=== PATIENT | female | born 1945 | race Asian ===

== ENCOUNTER 2018-06-04 14:58 | Inpatient (IN) | payer MEDICARE, OTHER ==
[~2018-06-04] VITALS: Ht 152.4 cm; Wt 28.6 kg
[2018-06-04] MEDS ORDERED: METFORMIN HCL1000 M1 ORAL (15:05)
[2018-06-04] MEDS ORDERED: ASPIRIN EC81 MG ORAL (15:05)
[2018-06-04] MEDS ORDERED: TAMSULOSIN HCL0.4 MG ORAL (15:05)
[2018-06-04] MEDS ORDERED: CARVEDILOL25 MG ORAL (15:08)
[2018-06-04] MEDS ORDERED: NORCO 5-325 TA1 EACH ORAL (15:08)
[2018-06-04] MEDS ORDERED: TYLENOL325 M1 PO (15:08)
[2018-06-04] MEDS ORDERED: SYNTHROID25 MCG ORAL (15:08)
[2018-06-04] MEDS ORDERED: CARBIDOPA-LEVO1 EA14 PO (15:08)
[2018-06-04] MEDS ORDERED: DOCUSATE SODIU250 MG ORAL (15:08)
[2018-06-04] MEDS ORDERED: PRO-STAT LIQUID30 ML ORAL (15:08)
[2018-06-04] MEDS ORDERED: ATORVASTATIN CA40 MG ORAL (15:08)
[2018-06-04 15:24] VITALS: BP 170/77
[2018-06-04] MEDS ORDERED: Sodium Chloride 500ML 500 ML IV ONE (15:25)
--- NOTE | 2018-06-04 15:28 | Emergency Room Report ---
History of Present Illness General Chief Complaint: Pain Source: Medical Record, EMS Present Illness HPI Patient present from nursing facility with reports of right sided pain above the knee There was no reports of any obvious witnessed trauma patient herself has underlying dementia and is not able to provide appropriate history she essentially repeat that she has pain to the right hip and leg area There was no reports of vomiting or diarrhea History of present illness remains significantly limited Allergies: Coded Allergies: QUETIAPINE (Verified Allergy, Unknown, 06/04/18) Patient History Past Medical History: see triage record Pertinent Family History: none Reviewed Nursing Documentation: PMH: Agreed; PSxH: Agreed Nursing Documentation-PMH Past Medical History: No History, Except For Hx Cardiac Problems: No - Parkinson's dz, hypothyroidism Hx Hypertension: Yes Hx Diabetes: Yes Hx Neurological Problems: No - muscle weakness Hx Cerebrovascular Accident: Yes Review of Systems All Other Systems: limited - Other than the ones mentioned in the history of present illness all others are reviewed however they do stay limited due to the patient's mental status Physical Exam Vital Signs Date Time Temp Pulse Resp B/P (MAP) Pulse Ox O2 Delivery O2 Flow Rate FiO2 06/04/18 14:55 98.2 70 16 175/85 98 Room Air Sp02 EP Interpretation: reviewed, normal General Appearance: no apparent distress Head: normocephalic, atraumatic Eyes: bilateral eye PERRL, bilateral eye EOMI ENT: hearing grossly normal, normal pharynx Neck: supple Respiratory: lungs clear, normal breath sounds Cardiovascular #1: regular rate, rhythm Gastrointestinal: non tender, soft Genitourinary: no CVA tenderness Musculoskeletal: other - Right leg appears to be about one to 2 cm short compared to the left side, there is an external rotation on the right side as well evidence of previous knee surgery, Neurologic: responsive - To verbal questioning minimally patient appears somewhat confused, has difficulty communicating Skin: normal color, no rash Medical Decision Making Diagnostic Impression: Primary Impression: Hip pain Additional Impression: Leg pain ER Course Multiple differentials were considered Given the patient's initial presentation x-ray imaging was obtained there does appear to be some chronic pathology in the right hip this was discussed with radiology CT imaging was also obtained I did contact the nursing facility they report that the patient last had hospital visit in September in [facility] regarding her right knee pain and at that time likely infection Patient is not ambulatory on a regular basis however they report that she has ambulated with some assistance to the restroom with a walker Given the patient's discomfort change in status Will require further inpatient evaluation Labs Test 06/04/18 15:30 White Blood Count 7.9 K/UL (4.8-10.8) Red Blood Count 4.09 M/UL (4.20-5.40) Hemoglobin 12.7 G/DL (12.0-16.0) Hematocrit 36.7 % (37.0-47.0) Mean Corpuscular Volume 90 FL (80-99) Mean Corpuscular Hemoglobin 31.1 PG (27.0-31.0) Mean Corpuscular Hemoglobin Concent 34.7 G/DL (32.0-36.0) Red Cell Distribution Width 10.8 % (11.6-14.8) Platelet Count 268 K/UL (150-450) Mean Platelet Volume 4.9 FL (6.5-10.1) Neutrophils (%) (Auto) 72.7 % (45.0-75.0) Lymphocytes (%) (Auto) 17.7 % (20.0-45.0) Monocytes (%) (Auto) 6.2 % (1.0-10.0) Eosinophils (%) (Auto) 2.7 % (0.0-3.0) Basophils (%) (Auto) 0.7 % (0.0-2.0) Prothrombin Time 10.7 SEC (9.30-11.50) Prothromb Time International Ratio 1.0 (0.9-1.1) Activated Partial Thromboplast Time 32 SEC (23-33) Sodium Level 137 MMOL/L (136-145) Potassium Level 3.9 MMOL/L (3.5-5.1) Chloride Level 101 MMOL/L (98-107) Carbon Dioxide Level 24 MMOL/L (21-32) Anion Gap 13 mmol/L (5-15) Blood Urea Nitrogen 21 mg/dL (7-18) Creatinine 0.7 MG/DL (0.55-1.30) Estimat Glomerular Filtration Rate > 60 mL/min (>60) Glucose Level 96 MG/DL (74-106) Calcium Level 8.6 MG/DL (8.5-10.1) Total Bilirubin 0.4 MG/DL (0.2-1.0) Aspartate Amino Transf (AST/SGOT) 15 U/L (15-37) Alanine Aminotransferase (ALT/SGPT) 10 U/L (12-78) Alkaline Phosphatase 63 U/L (46-116) Total Creatine Kinase 40 U/L (26-308) Creatine Kinase MB 0.8 NG/ML (0.0-3.6) Creatine Kinase MB Relative Index 2.0 Total Protein 7.6 G/DL (6.4-8.2) Albumin 3.6 G/DL (3.4-5.0) Globulin 4.0 g/dL Albumin/Globulin Ratio 0.9 (1.0-2.7) EKG Diagnostic Results Rate: normal Rhythm: NSR ST Segments: no acute changes Rhythm Strip Diag. Results EP Interpretation: yes Rate: 77 Rhythm: NSR, no PVC's, no ectopy Other X-Ray Diagnostic Results Other X-Ray Diagnostic Results #1: X-Ray ordered: Pelvic # of Views/Limited Vs Complete: 1 View Indication: Pain EP Interpretation: Yes Interpretation: no dislocation, no soft tissue swelling, no fractures, other Impression: No acute disease Electronically Signed by: Jacoby Padilla DO Other X-Ray Diagnostic Results #2: X-Ray ordered: Right femur # of Views/Limited Vs Complete: 2 View Indication: Pain EP Interpretation: Yes Interpretation: no dislocation, no soft tissue swelling, no fractures Impression: No acute disease Electronically Signed by: Jacoby Padilla DO Other X-Ray Diagnostic Results #3: X-Ray ordered: Right knee # of Views/Limited Vs Complete: 3 View Indication: Pain EP Interpretation: Yes Interpretation: no dislocation, no soft tissue swelling, no fractures Impression: No acute disease Electronically Signed by: Jacoby Padilla DO CT/MRI/US Diagnostic Results CT/MRI/US Diagnostic Results : Impression CT pelvicImpression: Postsurgical changes and extensive chronic deformity of the right hip joint, as described. Suspect findings represent an old surgical fracture repair upon which is superimposed chronic avascular necrosis with resultant morphologic changes of the femoral head. There is associated lateral subluxation and development of a pseudoarthrosis with the acetabular lip. Note protrusion of surgical screws beyond the margin of the femoral head/neck remnant No acute bony trauma Questionable old sacral coccygeal junction fracture deformity Last Vital Signs Date Time Temp Pulse Resp B/P (MAP) Pulse Ox O2 Delivery O2 Flow Rate FiO2 06/04/18 15:24 98.2 73 14 170/77 98 Room Air Status: improved Disposition: ADMITTED INPATIENT Condition: Serious Jacoby Padilla DO Jun 04, 2018 15:28
[2018-06-04 15:48] VITALS: BP 130/80
[2018-06-04 15:48] LABS: BASOPHILS % (AUTO) 0.7 % (0.0-2.0); EOSINOPHILS % (AUTO) 2.7 % (0.0-3.0); HEMATOCRIT 36.7 % (37.0-47.0); HEMOGLOBIN 12.7 G/DL (12.0-16.0); LYMPHOCYTES % (AUTO) 17.7 % (20.0-45.0); MEAN CORPUSCULAR VOLUME 90 FL (80-99); MONOCYTES % (AUTO) 6.2 % (1.0-10.0); NEUTROPHILS % (AUTO) 72.7 % (45.0-75.0); PLATELET COUNT 268 K/UL (150-450); RED BLOOD COUNT 4.09 M/UL (4.20-5.40); RED CELL DISTRIBUTION WIDTH 10.8 % (11.6-14.8); WHITE BLOOD COUNT 7.9 K/UL (4.8-10.8)
--- NOTE | 2018-06-04 16:17 | Diagnostic Imaging Report ---
Indication: Pain Technique: One view of the pelvis Comparison: none Findings: There is marked abnormality of the right hip joint. There is extensive bone loss of the femoral head which appears chronic. There is also marked remodeling of the acetabulum. 3 surgical screws are seen within the right femoral neck. The left hip appears unremarkable. No acute fractures or dislocations. A few small lucencies project just superior to the femoral neck and greater trochanter. This could indicate soft tissue gas Impression: Extensive deformity of the right hip joint, with marked volume loss of the femoral head and neck. This may be due to prior avascular necrosis, prior trauma, or combination of both. There is also evidence of prior surgery. Correlate with this cortical findings. Possible soft tissue gas within the right hip region soft tissues or hip joint. Could indicate soft tissue ulcer or infection with gas-forming organism, or could be artifactual. Correlate with clinical findings, consider cross-sectional imaging if clinically indicated No acute bony trauma Findings discussed by phone with Dr. Padilla at the time of interpretation
[2018-06-04 16:27] LABS: ANION GAP 13 mmol/L (5-15); BLOOD UREA NITROGEN 21 mg/dL (7-18); CALCIUM 8.6 MG/DL (8.5-10.1); CARBON DIOXIDE 24 MMOL/L (21-32); CHLORIDE 101 MMOL/L (98-107); CREATININE 0.7 MG/DL (0.55-1.30); POTASSIUM 3.9 MMOL/L (3.5-5.1); SODIUM 137 MMOL/L (136-145)
[2018-06-04 16:40] LABS: ALANINE AMINOTRANSFERASE 10 U/L (12-78); ALBUMIN 3.6 G/DL (3.4-5.0); ALBUMIN/GLOBULIN RATIO 0.9 (1.0-2.7); ALKALINE PHOSPHATASE 63 U/L (46-116); ASPARTATE AMINO TRANSFERASE 15 U/L (15-37); BILIRUBIN,TOTAL 0.4 MG/DL (0.2-1.0); CKMB 0.8 NG/ML (0.0-3.6); CREATINE KINASE 40 U/L (26-308)
--- NOTE | 2018-06-04 17:03 | Diagnostic Imaging Report ---
Indication: Right hip pain Technique: Noncontrast spiral acquisitions obtained through the pelvis. Multiplanar reconstructions generated. Total dose length product 236.32 mGycm. CTDIvol(s) 8.73 mGy. Dose reduction achieved using automated exposure control Comparison: Plain radiographs performed one hour earlier Findings: The right femoral head and neck are markedly abnormal. The femoral head is completely collapsed, with extensive volume loss. The margins nonetheless appear sharp. There is extensive subchondral sclerosis and subchondral cyst formation. What remains of the femoral head and neck is subluxed laterally, and primarily articulates with the lateral superior acetabular lip as well as the anterior acetabular lip rather than the actual central joint. The space between the surfaces is markedly narrowed there is also posterior rotational subluxation of the hip joint, although this may be an artifact of positioning. There is marked remodeling of the pseudoarthrosis of the femoral neck/head with the lateral acetabular lip. There is also subchondral sclerosis of the acetabulum. 3 surgical nails are seen through the femoral neck. The tips of all 3 of these protrude beyond the surface of the femoral head/neck. Proliferative change surrounding nails presumably reflects old healed fracture deformity. A few osseous fragments are seen within the hip joint space. These may be heterotopic or residual of prior trauma. Note that no lucencies corresponding to the lucency described on recent plain radiograph are evident, presumably artifactual No acute fractures. The left hip morphology appears unremarkable. There is questionably an old healed fracture deformity of the sacrococcygeal junction. The visualized pelvic viscera, including the appendix, uterus, adnexal structures, distal bowel appear unremarkable. There are atherosclerotic vascular calcifications Impression: Postsurgical changes and extensive chronic deformity of the right hip joint, as described. Suspect findings represent an old surgical fracture repair upon which is superimposed chronic avascular necrosis with resultant morphologic changes of the femoral head. There is associated lateral subluxation and development of a pseudoarthrosis with the acetabular lip. Note protrusion of surgical screws beyond the margin of the femoral head/neck remnant No acute bony trauma Questionable old sacral coccygeal junction fracture deformity No findings corresponding to the hip soft tissue lucencies described on recent radiograph. These were presumably artifactual The CT scanner at [facility] is accredited by the [employer] and the scans are performed using protocols designed to limit radiation exposure to as low as reasonably achievable to attain images of sufficient resolution adequate for diagnostic evaluation.
--- NOTE | 2018-06-04 17:04 | Diagnostic Imaging Report ---
Indication: Knee pain Technique: 3 views of the right knee Comparison: No Findings:No acute fracture. No dislocation. There is degenerative narrowing of the medial lateral joint compartments and of the patellofemoral joint compartment. Bones are osteoporotic. Impression: Degenerative changes. No acute bony trauma
--- NOTE | 2018-06-04 17:06 | Diagnostic Imaging Report ---
Indications: Right hip pain Technique: Two views of the right femur Comparison: None Findings: Note that the lateral view the distal femur is suboptimal, but this area is adequately included on a knee radiograph performed the same time. Marked abnormality of the femoral head and neck is described in detail on other reports. No femoral shaft fracture demonstrated. Changes of the knee joint are described on separate knee radiograph Impression: No acute bony trauma
[2018-06-04 17:38] VITALS: BP 152/75
[2018-06-04 19:38] VITALS: BP 164/80
[2018-06-04] MEDS ORDERED: Acetaminophen 500mg (ES) tab ORAL PRN (22:00)
[2018-06-05] VITALS: BP 162/82
[2018-06-05 04:00] VITALS: BP 155/80
[2018-06-05] MEDS: Levothyroxine 25mcg tab ORAL SCH (05:46)
[2018-06-05] MEDS: NovoLOG Insulin Flexpen SUBQ SCH ×4 (05:46→20:55)
[2018-06-05 05:56] LABS: ANION GAP 15 mmol/L (5-15); BLOOD UREA NITROGEN 18 mg/dL (7-18); CALCIUM 8.6 MG/DL (8.5-10.1); CARBON DIOXIDE 22 MMOL/L (21-32); CHLORIDE 101 MMOL/L (98-107); CREATININE 0.5 MG/DL (0.55-1.30); POTASSIUM 3.8 MMOL/L (3.5-5.1); SODIUM 138 MMOL/L (136-145)
[2018-06-05 08:00] VITALS: BP 163/81
[2018-06-05] MEDS: metFORMIN 500mg tab ORAL SCH (08:14)
[2018-06-05] MEDS: Docusate 250mg cap ORAL SCH ×2 (08:14→17:29)
[2018-06-05] MEDS: Aspirin EC 81mg tab ORAL SCH (08:14)
[2018-06-05] MEDS: Carvedilol 25mg Tab ORAL SCH ×2 (08:14→20:48)
[2018-06-05] MEDS: Heparin 5000 units/ml inj SUBQ SCH ×2 (08:15→20:50)
[2018-06-05] MEDS: Norco 5mg/325mg tab ORAL PRN (10:04)
--- NOTE | 2018-06-05 11:45 | History and Physical Report ---
DATE OF ADMISSION: 06/04/2018 CHIEF COMPLAINT: A right-sided leg pain. HISTORY OF PRESENT ILLNESS: This is a 72-year-old female from [facility]. The patient was transferred to the hospital due to undue right leg pain. The patient has multiple medical problems. PAST MEDICAL HISTORY: 1. Type 2 diabetes mellitus. 2. Status post subdural hematomas. 3. Ataxia. 4. Status post CVA. 5. Parkinson's disease. 6. Hypothyroidism. 7. History of recurrent hyponatremia. MEDICATIONS: Insulin sliding scale, atorvastatin, tamsulosin, baby aspirin, Coreg, sodium docusate, metformin, and Synthroid. ALLERGIES: To Seroquel (hyponatremia). REVIEW OF SYSTEMS: Unable to get to obtain as the patient is confused. PHYSICAL EXAMINATION: GENERAL: This is an elderly [place] petite female who is in no acute distress. VITAL SIGNS: Blood pressure 163/81, pulse 72 and regular, respirations 20, and temperature 98 degrees. HEENT: The head is normocephalic and atraumatic. Pupils are equal, round, and reactive to light and accommodation consensually. NECK: Supple. Trachea midline. There was no lymphadenopathy or thyromegaly. LUNGS: Clear to auscultation and percussion. HEART: Regular rate and rhythm without rubs, murmurs, or gallops. ABDOMEN: Soft and nontender. Bowel sounds were active. EXTREMITIES: No clubbing, cyanosis, or edema. NEUROLOGIC: She is confused. There were no gross focal findings. LABORATORY AND ANCILLARY DATA: CBC within normal limits. Chemistry within normal limits. Imaging reports, knee x-rays, degenerative joint disease. Femur x-ray, degenerative joint disease.. CAT scan of the pelvis, questionable old sacrococcygeal junction fracture deformity, postsurgical changes, and extensive chronic deformity of the right hip joint post repair, there is associated lateral subluxation and development of pseudoarthrosis of the acetabular lip. ASSESSMENT AND PLAN: The patient exhibits nonspecific degenerative joint disease and old fracture of the hip with old postsurgical findings. She has a dislocation of her Right Hip Total Hip prosthesis. I am going to obtain an orthopedic Consult by Dr. Ojeda for a possible surgical reconstruction. In the meantime , analgetic therapy and DVT prophylaxis. Sarath Rabago M.D. DR: BONIFACIO JOB#: [id number] CC: HERSON
[2018-06-05 12:00] VITALS: BP 153/85
[2018-06-05 16:00] VITALS: BP 133/78
--- NOTE | 2018-06-05 16:21 | Diagnostic Imaging Report ---
History: DVT Exam: US VENOUS BILATERAL LOWER EXTREMITIES Comparison: FINDINGS: Deep venous system of the right and left lower extremity appear patent and compressible with spontaneous and augmented flow without intraluminal echoes. IMPRESSION: No evidence of DVT within the right or left lower extremity.
[2018-06-05 20:00] VITALS: BP 146/81
[2018-06-05] MEDS: Tamsulosin 0.4mg cap ORAL SCH (20:47)
[2018-06-05] MEDS: Atorvastatin 80mg tab ORAL SCH (20:49)
[2018-06-06] VITALS (7 sets, daily range): BP systolic 129–177; BP diastolic 76–92
[2018-06-06] MEDS: Levothyroxine 25mcg tab ORAL SCH (06:10)
[2018-06-06] MEDS: NovoLOG Insulin Flexpen SUBQ SCH ×4 (06:11→20:33)
[2018-06-06] MEDS: Aspirin EC 81mg tab ORAL SCH (08:25)
[2018-06-06] MEDS: Docusate 250mg cap ORAL SCH ×2 (08:25→17:05)
[2018-06-06] MEDS: Carvedilol 25mg Tab ORAL SCH ×2 (08:26→20:29)
[2018-06-06] MEDS: metFORMIN 500mg tab ORAL SCH (08:27)
[2018-06-06] MEDS: Heparin 5000 units/ml inj SUBQ SCH ×2 (08:28→20:30)
--- NOTE | 2018-06-06 08:41 | General Progress Note ---
Assessment/Plan Assessment/Plan CT abd + Hip dislodged THR. Called Ortho Subjective Allergies: Coded Allergies: QUETIAPINE (Verified Allergy, Unknown, 06/04/18) Subjective Still c/o Rt. Hip pain. Objective Last 24 Hour Vital Signs Date Time Temp Pulse Resp B/P (MAP) Pulse Ox O2 Delivery O2 Flow Rate FiO2 06/06/18 08:26 76 161/92 06/06/18 04:00 97.9 77 16 129/76 (93) 97 06/06/18 00:00 98.5 69 16 147/78 (101) 95 06/05/18 20:50 Room Air 06/05/18 20:48 72 163/81 06/05/18 20:00 98.5 83 16 146/81 (102) 97 06/05/18 16:00 97.3 77 18 133/78 (96) 95 06/05/18 12:00 97.4 73 18 153/85 (107) 97 Intake and Output 06/05/18 06/06/18 19:00 07:00 Intake Total 840 ml 510 ml Balance 840 ml 510 ml Intake Oral 840 ml 510 ml # Voids 3 2 # Bowel Movements 2 Height (Feet): 5 Weight (Pounds): 63 Objective Chachectic. Cv RR Lungs CTA Abd SNT. BS + E Rt Hip min ROM Sarath Rabago MD Jun 06, 2018 08:41
--- NOTE | 2018-06-06 11:45 | Consultation ---
DATE OF CONSULTATION: 06/06/2018 CONSULTING PHYSICIAN: Jhon Ojeda M.D. CHIEF COMPLAINT: Right leg pain. HISTORY OF PRESENT ILLNESS: The patient is a pleasant 72-year-old female, who underwent a closed reduction and percutaneous pinning of the right hip. Subsequently, she was complaining of right leg pain. She was admitted for possible fracture of the right hip. PAST MEDICAL HISTORY: Reviewed from the intake chart. PAST SURGICAL HISTORY: Reviewed from the intake chart. MEDICATIONS: Reviewed from the intake chart. SOCIAL HISTORY: Reviewed from the intake chart. PHYSICAL EXAMINATION: GENERAL: The patient is resting comfortably. She is on bed. EXTREMITIES: She has pain with internal and external rotation of the right leg. Right hip incision is clean, dry, and intact. Posterior calf is soft. No ecchymosis. No swelling. DIAGNOSTIC DATA: Imaging studies show avascular necrosis of the femoral head. No failure of the hardware. There is significant arthrosis of the hip joint. ASSESSMENT: Right hip, status post right hip closed reduction and percutaneous pinning, with secondary avascular necrosis. 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 The thing that will help alleviate her symptoms, conversion total hip arthroplasty if this can be done the procedure does need to be done acutely. I will discuss the issue with the primary care physician. We can follow up as an outpatient for further care and recommendations. Jhon Ojeda M.D. DR: SHEILA JOB#: [id number] CC:
[2018-06-06] MEDS: Norco 5mg/325mg tab ORAL PRN (17:06)
[2018-06-06] MEDS: Atorvastatin 80mg tab ORAL SCH (20:28)
[2018-06-06] MEDS: Tamsulosin 0.4mg cap ORAL SCH (20:29)
[2018-06-07] VITALS: BP 169/83
[2018-06-07 04:00] VITALS: BP 167/85
[2018-06-07] MEDS: Levothyroxine 25mcg tab ORAL SCH (06:04)
[2018-06-07] MEDS: NovoLOG Insulin Flexpen SUBQ SCH ×3 (06:30→16:30)
[2018-06-07 08:00] VITALS: BP 161/77
[2018-06-07] MEDS: Carvedilol 25mg Tab ORAL SCH (08:22)
[2018-06-07] MEDS: Docusate 250mg cap ORAL SCH ×2 (08:22→17:32)
[2018-06-07] MEDS: metFORMIN 500mg tab ORAL SCH (08:22)
[2018-06-07] MEDS: Aspirin EC 81mg tab ORAL SCH (08:22)
[2018-06-07] MEDS: Heparin 5000 units/ml inj SUBQ SCH (08:27)
--- NOTE | 2018-06-07 09:18 | General Progress Note ---
Assessment/Plan Assessment/Plan CT abd + Hip dislodged THR. Per Ortho: ASSESSMENT: Right hip, status post right hip closed reduction and percutaneous pinning, with secondary avascular necrosis. 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 The thing that will help alleviate her symptoms, conversion total hip arthroplasty if this can be done as an outpatient. DC to SNF. Subjective Allergies: Coded Allergies: QUETIAPINE (Verified Allergy, Unknown, 06/04/18) Subjective Still c/o Rt. Hip pain. Objective Last 24 Hour Vital Signs Date Time Temp Pulse Resp B/P (MAP) Pulse Ox O2 Delivery O2 Flow Rate FiO2 06/07/18 08:22 73 161/77 06/07/18 08:00 97.5 73 18 161/77 (105) 96 06/07/18 04:00 97.6 68 18 167/85 (112) 100 06/07/18 00:00 97.7 68 18 169/83 (111) 99 06/06/18 20:42 Room Air 06/06/18 20:29 74 163/72 06/06/18 20:00 98.0 72 18 167/81 (109) 97 06/06/18 18:33 98.4 72 18 157/76 (103) 06/06/18 16:00 98.2 74 18 177/77 (110) 97 06/06/18 12:00 97.7 71 16 154/81 (105) 98 Intake and Output 06/06/18 06/07/18 19:00 07:00 Intake Total 558 ml 320 ml Balance 558 ml 320 ml Intake Oral 558 ml 320 ml # Voids 2 2 # Bowel Movements 1 Height (Feet): 5 Weight (Pounds): 63 Objective Chachectic. Cv RR Lungs CTA Abd SNT. BS + E Rt Hip min ROM Sarath Rabago MD Jun 07, 2018 09:18
[2018-06-07 12:04] VITALS: BP 159/90
[2018-06-07 16:00] VITALS: BP 147/90
--- NOTE | 2018-06-08 10:30 | Discharge Summary ---
Discharge Summary Discharge Summary _ DATE OF ADMISSION: 06/04/2018 DATE OF DISCHARGE: 06/07/2018 REASON FOR ADMISSION: 72 years old female, resident of nursing home facility, with past medical history of CVA, Parkinson disease, hypothyroidism, type 2 diabetes mellitus, status post subdural hematoma, ataxia, recurrent hyponatremia, was transferred for evaluation due to right leg pain. X-ray of the pelvis revealed extensive deformity of the right hip joint with marked volume loss of the femoral head and neck area, but no acute bony trauma. Right femur x-ray revealed no acute bony trauma. Right knee x-ray show degenerative changes, but no acute bony trauma. CT of the pelvis showed extensive chronic deformity of the right hip, likely representing old surgical fracture with superimposed chronic a vascular necrosis with resultant morphological changes of the femoral head. Associated lateral subluxation and development of a pseudoarthrosis with the acetabulum noted. . Laboratory workup was unremarkable. Patient admitted with diagnosis of degenerative joint disease, old fracture of the right hip with old postsurgical changes, possible dislocation of right hip total hip prosthesis, chronic avascular necrosis HOSPITAL COURSE: Patient admitted to medical surgical floor. Pain management was addressed. DVT prophylaxis provided. Orthopedic surgery consult was requested. 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 Significant arthrosis of the hip joint noted. 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 Patient with history of right hip closed reduction and percutaneous pinning with secondary avascular necrosis Surgeon recommended conversion to total hip arthroplasty, but this does not have to be done acutely. Pain management was addressed . Metformin was continued. Hemoglobin A1c 6.3, at goal. Sinemet continued. Other outpatient medications resumed. 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 DISCHARGE INSTRUCTIONS: Patient was discharged to the nursing home [facility]. Follow up with medical doctor at the facility. I have been assigned to dictate discharge summary for this account. I was not involved in the patient's management. Linnette Pat NP Jun 08, 2018 10:30
--- NOTE | 2018-06-09 14:13 | Cardiology Report ---
APPROVED REPORT EKG Measurement Heart [id number] CT [id number] [id number] Normal sinus rhythm Septal infarct, age undetermined Abnormal ECG
--- NOTE | 2018-06-10 01:45 | Progress Note ---
DATE: 06/07/2018 SUBJECTIVE: . No issues overnight. She still has moderate discomfort in the right thigh. OBJECTIVE: EXTREMITIES: Right thigh examination shows well-healed incision. Range of motion of right hip does give some pain. Posterior calf is soft. along the hip area. No ecchymosis. ASSESSMENT: Status post closed reduction and percutaneous pinning, right femoral neck fracture complicated by avascular necrosis, femoral head, with significant arthrosis of hip joint. DISCUSSION: At this point, I have had a lengthy discussion with the PMD. It seems like about six months ago when she underwent the percutaneous pinning and closed reduction was the last time that she ambulated. Since then, she has had decreased ability to ambulate. She has had more progressive pain of right hip. I discussed with PMD that only treatment option is total hip arthroplasty at the bases. Given that the patient did ambulate prior to six months ago, I think she would be a candidate for hip replacement, which we can schedule as elected procedure. The patient does have appropriate guarding and therefore, at this point, there was no reason to proceed with surgery, but we will try to coordinate that on an outpatient basis. Jhon Ojeda M.D. DR: YOHAN JOB#: [id number] CC:
== END 2018-06-07 18:05 | DRG 560 ==
LOC: EDBD 14:58 → EMR 15:24 → 4E 16:02 → EDBEDREQ 18:56 → 4E 06-05 08:42
DX: T84.328A Displacement of other bone devices, implants and grafts, initial encounter (principal); M87.351 Other secondary osteonecrosis, right femur; Y83.8 Other surgical procedures as the cause of abnormal reaction of the patient, or of later complication, without mention of misadventure at the time of the procedure; E11.9 Type 2 diabetes mellitus without complications; G20 Parkinson's disease; E03.9 Hypothyroidism, unspecified; Z79.4 Long term (current) use of insulin; Z79.82 Long term (current) use of aspirin; M16.11 Unilateral primary osteoarthritis, right hip; I69.393 Ataxia following cerebral infarction; Z96.641 Presence of right artificial hip joint
CPT/HCPCS: 36415; 72170; 72192; 80048; 80053; 82550; 82553; 82962; 83036; 85025; 85610; 85730; 87081; 93005; 93970; 99285; J1815